=== PATIENT | female | born 1940 | race Caucasian/White ===

== ENCOUNTER 2016-10-17 07:49 | Observation (INO) | payer MEDICARE, OTHER ==
[~2016-10-17] VITALS: Ht 172.7 cm; Wt 55.7 kg
[~2016-10-17 07:49] MED LIST: AMIO200T42 PO; CARB1TAB44 PO; CARB1TAB47 PO; CYCL5TAB PO; DENO60DI IM; ESZO2TAB34 PO; IBUP200T5 PO; MAGN1TAB PO; ONDA4TAB13 SL; RANI150C PO; SENN8.6T98 PO; WARF2TAB7 PO; [UNRECOGNIZED DRUG - CODE] PO
[2016-10-17] MEDS ORDERED: LIDOCAINE 1%, 2ML ONE (08:40)
[2016-10-17] MEDS ORDERED: VANCOMYCIN PMX 1GM/200ML 200 ML IV STA (08:43)
[2016-10-17] MEDS ORDERED: LACTATED RINGERS 1,000 ML IV SCH (08:43)
[2016-10-17] MEDS ORDERED: FENTANYL PF 250 MCG/5ML ONE (09:00)
[2016-10-17] MEDS ORDERED: ACETAMINOPHEN 500 MG TABLET PO ONE (09:00)
[2016-10-17] MEDS ORDERED: MIDAZOLAM 1 MG/ML, 2ML ONE (09:00)
[2016-10-17] MEDS ORDERED: LIDOCAINE 1%, 2ML SQ PRN (09:00)
[2016-10-17] MEDS ORDERED: EPHEDRINE 50 MG/ML, 1ML ONE (09:28)
[2016-10-17] MEDS ORDERED: PROPOFOL 10 MG/ML, 20ML ONE (09:28)
[2016-10-17] MEDS ORDERED: SUCCINYLCHOLINE 20 MG/ML, 10ML ONE (09:28)
[2016-10-17] MEDS ORDERED: PHENYLEPHRINE 10 MG/ML ONE (09:28)
[2016-10-17] MEDS ORDERED: ONDANSETRON 2MG/ML, 2ML ONE (09:28)
[2016-10-17] MEDS ORDERED: DEXAMETHASONE 4 MG/ML, 1ML ONE (09:28)
[2016-10-17] MEDS ORDERED: HYDROmorphone 1 MG/ML, 1ML IV PRN ×2 (09:30→10:00)
[2016-10-17] MEDS ORDERED: OXYcodone/APAP 5/325MG TABLET PO PRN (09:30)
[2016-10-17] MEDS ORDERED: TEMPLATE NON-FORMULARY MED. (Denosumab (Prolia) 60 MG) IM SCH (09:30)
[2016-10-17] MEDS ORDERED: LABETALOL 5MG/ML, 20ML IV PRN (10:00)
[2016-10-17] MEDS ORDERED: FENTANYL PF 100 MCG/2ML IV PRN (10:00)
[2016-10-17] MEDS ORDERED: hydrALAzine 20 MG/ML, 1ML IV PRN (10:00)
[2016-10-17] MEDS ORDERED: MEPERIDINE/PF 25MG/0.5ML IVPush PRN (10:00)
[2016-10-17] MEDS ORDERED: MIDAZOLAM 1 MG/ML, 2ML IV PRN (10:00)
[2016-10-17] MEDS ORDERED: METOCLOPRAMIDE 5 MG/ML, 2ML IV PRN (10:00)
[2016-10-17] MEDS ORDERED: ACETAMINOPHEN 325 MG TABLET PO PRN (10:00)
[2016-10-17] MEDS ORDERED: OXYcodone 5 MG/5 ML ORAL.SOL UDC PO PRN (10:00)
[2016-10-17] MEDS ORDERED: PROMETHAZINE 25 MG/ML, 1ML IV PRN (10:00)
[2016-10-17] MEDS ORDERED: ONDANSETRON 2MG/ML, 2ML IVPush PRN (10:00)
[2016-10-17] MEDS ORDERED: ACETAMINOPHEN 650 MG/20.3 ML UDC ONE (11:42)
[2016-10-17] MEDS ORDERED: hydrALAzine 20 MG/ML, 1ML ONE (11:42)
[2016-10-17] MEDS ORDERED: OXYcodone 5 MG/5 ML ORAL.SOL UDC ONE (11:42)
[2016-10-17] MEDS ORDERED: FENTANYL PF 100 MCG/2ML ONE (11:42)
[2016-10-17 13:57] VITALS: BP 138/72
[2016-10-17] MEDS: POTASSIUM CHLORIDE 20 MEQ in D5%-0.45% NACL 1,000 ML IV SCH ×2 (16:11→20:46)
[2016-10-17] MEDS: ONDANSETRON 2MG/ML, 2ML IVPush PRN (18:12)
[2016-10-17 20:03] VITALS: BP 153/75
[2016-10-18 00:04] VITALS: BP 123/66
[2016-10-18] MEDS: ONDANSETRON 2MG/ML, 2ML IVPush PRN (00:52)
[2016-10-18 02:59] VITALS: BP 154/69
[2016-10-18] MEDS: POTASSIUM CHLORIDE 20 MEQ in D5%-0.45% NACL 1,000 ML IV SCH (08:00)
[2016-10-18] MEDS ORDERED: CYCLOBENZAPRINE 10 MG TABLET PO SCH (09:00)
[2016-10-18] MEDS ORDERED: AMIODARONE 200 MG TABLET PO SCH (09:00)
[2016-10-18] MEDS ORDERED: LEVOTHYROXINE 100 MCG INJ IVPush SCH (09:00)
[2016-10-18 11:51] VITALS: BP 136/66
[2016-10-18 14:02] VITALS: BP 125/68
[2016-10-18] MEDS ORDERED: LEVO100T PO (14:20)
[2016-10-18] MEDS ORDERED: CELE200C PO (14:21)
== END 2016-10-18 14:35 | disposition home or self-care (01) ==
LOC: OUT 07:49 → ORIP 09:02 → 4NOR 12:40 → DCLOUNGE 10-18 14:18
PROVIDERS: ADMIT Surgery; ATTEND Surgery
DX: E06.3 Autoimmune thyroiditis (principal); R22.1 Localized swelling, mass and lump, neck; I48.91 Unspecified atrial fibrillation; J45.909 Unspecified asthma, uncomplicated; K21.9 Gastro-esophageal reflux disease without esophagitis; E04.2 Nontoxic multinodular goiter; M81.0 Age-related osteoporosis without current pathological fracture; D68.318 Other hemorrhagic disorder due to intrinsic circulating anticoagulants, antibodies, or inhibitors; G20 Parkinson's disease; Z79.01 Long term (current) use of anticoagulants
CPT/HCPCS: 36415; 60240; 82040; 82310; 85610; 88307; 88333; 95865; 95940; 96374; 96375; C1760; G0378; J0330; J0360; J1100; J2250; J2370; J2405; J2704; J3010; J3370; J3480; J3490; J7120